=== PATIENT | male | born 1975 | race Caucasian/White ===

== ENCOUNTER 2018-05-10 20:36 | Inpatient (IN) | payer OTHER ==
[~2018-05-10 20:36] MED LIST: Glycopyrrolate 0.2 MG/ML 5 ML SYRINGE ONE; ISOVUE-370 76%-LOCM 1 ML ONE; PHENYLEPHRINE-NS 100 MCG/ML 10 ML SYRINGE ONE
[2018-05-10] MEDS ORDERED: Adacel (T-DAP) 0.5 ML VIAL ONE (20:38)
[2018-05-10] MEDS ORDERED: CEFAZOLIN/Water 2 GM/20 ML SYRINGE ONE (20:38)
[2018-05-10] MEDS ORDERED: Atropine Sulfate 1 mg/10 ml Syringe ONE (20:44)
[2018-05-10 20:55] LABS: #Basophils 0.1 thou/uL (0.0-0.2); #Eosinphils 0.4 thou/uL (0.0-0.7); #Lymphocytes 4.2 thou/uL (1.20-3.40); #Neutrophils 13.6 thou/uL (1.40-6.50); %Basophils 0.3 % (0.0-1.0); %Eosinophils 2.3 % (0.0-10.0); %Lymphocytes 21.9 % (21.0-51.0); %Monocytes 5.1 % (0.0-10.0); %Neutrophils 70.4 % (42.0-75.0); Hemoglobin 15.1 g/dL (14.0-18.0); Mean Corpuscular HGB CONC 36.1 g/dL (32.0-36.0); Mean Corpuscular Hemoglobin 31.4 pg (27.0-31.0); Mean Corpuscular Volume 86.9 fl (80.0-94.0); Mean Platelet Volume 6.2 fL (7.4-10.4); Platelet Count 349 thou/uL (130-400); RBC Distribution Width 12.3 % (11.5-14.5); White Blood Cell (WBC) Count 19.3 thou/uL (4.8-10.8)
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
[2018-05-10 21:03] LABS: INR-International Normal Ratio 1.1; PTT 26.9 SEC (22.9-36.1); Prothrombin Time 14.8 SEC (12.0-14.7)
[2018-05-10 21:08] LABS: ALT (SGPT) 23 U/L (8-55); AST (SGOT) 34 U/L (5-34); Albumin 4.1 g/dL (3.5-5.0); Alkaline Phosphatase 73 U/L (40-150); Anion Gap 15 mmol/L (10-20); BUN (Urea Nitrogen) 14 mg/dL (8.9-20.6); Bilirubin, Total 0.6 mg/dL (0.2-1.2); Calc. Creatinine Clearance 0 mL/min (70-130); Calcium 8.7 mg/dL (7.8-10.44); Carbon Dioxide 23 mmol/L (22-29); Chloride 104 mmol/L (98-107); Estimated GFR-MDRD 65; Globulin 2.7 g/dL (2.4-3.5); Glucose 190 mg/dL (70-105); Potassium 3.3 mmol/L (3.5-5.1); Protein, Total 6.8 g/dL (6.0-8.3); Sodium 139 mmol/L (136-145)
[2018-05-10] MEDS ORDERED: Dextrose 5% in Water 1,000 ML IV PRN (21:10)
[2018-05-10] MEDS ORDERED: hydrALAZINE 20 MG/ML VIAL SLOW IVP PRN (21:10)
[2018-05-10] MEDS ORDERED: Dextrose 50% Abboject 50 ML SYRINGE SLOW IVP PRN (21:10)
[2018-05-10] MEDS ORDERED: manNITOL 20% 500 ML ONE (21:14)
[2018-05-10] MEDS ORDERED: Bupivacaine/Epinephrine 0.25% 30 ML VIAL ONE (21:18)
[2018-05-10] MEDS ORDERED: Thrombin 5000 UNITS/5 ML VIAL ONE ×2 (21:18→22:37)
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
[2018-05-10] MEDS ORDERED: Bupivacaine HCl 0.5%/Epinephrine 1:200,000/PF 30 ml Vial ONE (21:29)
[2018-05-10] MEDS ORDERED: Sodium Chloride 0.9% 20 ML ONE (21:29)
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
[2018-05-10] MEDS ORDERED: Lidocaine 0.5%/Epinephrine 1:200,000 50 ml Vial ONE (21:44)
[2018-05-10] MEDS ORDERED: Lidocaine 1% w/Epinephrine 1:100K 30 ML VIAL ONE (21:44)
[2018-05-10] MEDS ORDERED: Lidocaine 2% w/Epinephrine 1:200K 20 ML VIAL ONE (21:44)
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
[2018-05-10 22:21] LABS: Actual Bicarbonate (HCO3a) 25.8 mEq/L (22-28); Base Excess (BEa) 0.3 mEq/L (-2.0 to +3.0); CO2 Tension 45.3 mmHg (35.0-45.0); Calcium, Ionized 1.1 mmol/L (1.12-1.30); Hematocrit-ABG 39.1 % (42.0-52.0); Hemoglobin (Hb) 13.2 g/dL (14.0-18.0); O2 Tension (PaO2) 93.9 mmHg (80.0-100.0); pH, Arterial 7.37 (7.35-7.45)
[2018-05-10 22:22] LABS: ALV-art Gradient 205.975 (0-20); Analyzer IN Cardio ER; Puncture Site LRA
[2018-05-10] MEDS ORDERED: Fentanyl CADD 250 ML IVPB SCH (22:30)
[2018-05-10] MEDS ORDERED: fentaNYL Citrate/PF 2,000 MCG in Sodium Chloride 0.9% 60 ML IV SCH (22:30)
[2018-05-10] MEDS ORDERED: PHENYLEPHRINE-NS 100 MCG/ML 10 ML SYRINGE ONE ×2 (22:46→23:03)
[2018-05-10] MEDS ORDERED: Norepinephrine 4 MG/4 ML VIAL ONE (22:52)
[2018-05-10] MEDS ORDERED: Phenylephrine HCL 10 MG/ML VIAL ONE (22:54)
[2018-05-10] MEDS ORDERED: levETIRAcetam 1000 MG/100 ML PREMIX BAG ONE (22:54)
[2018-05-11] MEDS ORDERED: Hydrocortisone Sod Succ/PF 100 mg/2 ml Vial IVP SCH (00:30)
[2018-05-11] MEDS: Sodium Chloride 0.9% 1,000 ML IV SCH ×3 (00:57→14:43)
[2018-05-11 00:58] LABS: Actual Bicarbonate (HCO3a) 18.6 mEq/L (22-28); Base Excess (BEa) -6.1 mEq/L (-2.0 to +3.0); CO2 Tension 33.8 mmHg (35.0-45.0); Hematocrit-ABG 31.5 % (42.0-52.0); Hemoglobin (Hb) 11.1 g/dL (14.0-18.0); O2 Tension (PaO2) 228.3 mmHg (80.0-100.0); pH, Arterial 7.36 (7.35-7.45)
[2018-05-11 00:59] LABS: Puncture Site LINE
[2018-05-11] MEDS ORDERED: Calcium Chloride 1 GM/10 ML Abboject SYRINGE ONE ×2 (01:14→01:16)
[2018-05-11] MEDS ORDERED: Calcium Chloride 1 GM/10 ML Abboject SYRINGE IVP SCH ×2 (01:15→01:30)
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
[2018-05-11] MEDS: CEFAZOLIN/Water 2 GM/20 ML SYRINGE SLOW IVP SCH ×3 (03:30→19:53)
--- NOTE | 2018-05-11 04:34 | OP ---
DIAGNOSIS: Left foot laceration 12-cm plantar medial, flap extending to the calcaneus palpated but n o fracture radiologically or by exam. PROCEDURE: Washout of left foot deep laceration involving the skin, subcutaneous tissue, plantar mus osmani, skin closure, and placement of posterior splint for tib-fib fracture more proximal. SURGEON: Cezar Cano M.D. PROCEDURE IN DETAIL: The patient at bedside in the emergency room, left foot laceration was cleansed with Betadine irrigated with saline and carefully palpated. No foreign bodies were appreciated. Sk in approximated with geri. Sterile dressing applied. Dr. Birmingham placed a posterior splint.
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
[2018-05-11] MEDS: HumaLOG 300 UNITS/3 ML VIAL SC PRN ×2 (04:50→12:54)
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
[2018-05-11 05:14] LABS: #Lymphocytes 0.6 thou/uL (1.20-3.40); #Monocytes 0.6 thou/uL (0.11-0.59); #Neutrophils 8.2 thou/uL (1.40-6.50); %Eosinophils 0.2 % (0.0-10.0); %Lymphocytes 6.4 % (21.0-51.0); %Monocytes 6.3 % (0.0-10.0); %Neutrophils 87.1 % (42.0-75.0); Hemoglobin 10.1 g/dL (14.0-18.0); Mean Corpuscular HGB CONC 35.6 g/dL (32.0-36.0); Mean Corpuscular Hemoglobin 31.2 pg (27.0-31.0); Mean Corpuscular Volume 87.7 fl (80.0-94.0); Mean Platelet Volume 6.5 fL (7.4-10.4); Platelet Count 222 thou/uL (130-400); RBC Distribution Width 12.3 % (11.5-14.5); Red Blood Cell (RBC) Count 3.24 mill/uL (4.70-6.10); White Blood Cell (WBC) Count 9.4 thou/uL (4.8-10.8)
[2018-05-11 05:19] LABS: Anion Gap 18 mmol/L (10-20); BUN (Urea Nitrogen) 11 mg/dL (8.9-20.6); Calc. Creatinine Clearance 107 mL/min (70-130); Calcium 9.1 mg/dL (7.8-10.44); Carbon Dioxide 16 mmol/L (22-29); Chloride 112 mmol/L (98-107); Estimated GFR-MDRD 62; Glucose 244 mg/dL (70-105); Magnesium 2.2 mg/dL (1.6-2.6); Phosphorus 2.8 mg/dL (2.3-4.7); Potassium 4.6 mmol/L (3.5-5.1); Sodium 141 mmol/L (136-145)
[2018-05-11] MEDS ORDERED: CEFAZOLIN 2 GM in Sodium Chloride 0.9% 100 ML IVPB SCH (06:00)
[2018-05-11 07:11] LABS: Actual Bicarbonate (HCO3a) 17.3 mEq/L (22-28); Base Excess (BEa) -7.2 mEq/L (-2.0 to +3.0); CO2 Tension 31.4 mmHg (35.0-45.0); Calcium, Ionized 1.2 mmol/L (1.12-1.30); Hematocrit-ABG 28.1 % (42.0-52.0); Hemoglobin (Hb) 9.8 g/dL (14.0-18.0); O2 Tension (PaO2) 145.5 mmHg (80.0-100.0); pH, Arterial 7.36 (7.35-7.45)
[2018-05-11 07:12] LABS: Puncture Site ALINE
--- NOTE | 2018-05-11 08:41 | RAD ---
CHEST 1 VIEW: HISTORY: Central line placement. COMPARISON: Chest radiograph from prior day. FINDINGS: Right IJ central venous catheter is in place with the tip poorly seen, although likely sits at the ca voatrial junction. The patient is intubated with endotracheal tube tip just below the level of the c lavicles. Enteric tube tip is at the gastric fundus. IMPRESSION: Uncomplicated placement of right internal jugular central venous catheter with tip poorly seen, altho ugh likely at the cavoatrial junction. POS: [facility]
--- NOTE | 2018-05-11 08:51 | RAD ---
PORTABLE CHEST: History: Respiratory distress. Comparison: Earlier exam, same day. FINDINGS: Endotracheal tube is in satisfactory position. NG tube and right central line are unchanged in positi on. Bibasilar lung changes are stable. IMPRESSION: Stable exam. POS: [facility]
[2018-05-11] MEDS ORDERED: Mannitol 12.5 GM/50 ML IV SCH (10:15)
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
--- NOTE | 2018-05-11 12:10 | CT ---
CT BRAIN WITHOUT CONTRAST: HISTORY: Traumatic brain injury. Hemicraniectomy. COMPARISON: CT brain 05/10/18. FINDINGS: There are right hemicraniectomy changes. There is herniation of the brain parenchyma through the def ect. There is right TELLER SUPERVISOR territory infarction, new. The ventricles are compressed. Large left subdu ral and epidural hematoma with left squamous portion of temporal bone fracture. The fracture extends to the left mastoids and crosses the internal auditory canal. There is also a fracture of the left lateral orbital wall. The fracture extends across the sphenoid sinuses into the right greater wing o f the sphenoid. There is extensive subdural hemorrhage along the anterior and posterior falx and right tentorium cere tylor. There is intraparenchymal hemorrhagic contusion of the left occipital and parietal lobes. Th ere is loss of normal sulcation throughout the brain indicating edema. There is hemorrhage within th e 4th ventricle. There is hemorrhage surrounding the brainstem. Intraparenchymal hemorrhage of the right parietal and temporal lobes is present with large right inf erior temporal hemorrhagic contusion. Inferior frontal hemorrhagic contusions are also present. There is midline shift approximately 8 mm. Severe brain swelling. Loss of normal basilar cisterns. IMPRESSION: 1. Right hemicraniectomy changes with extensive evolution of numerous hemorrhagic contusions, brain swelling, loss of basilar cisterns, and narrowing of the ventricular system. There are numerous new foci of intraparenchymal hemorrhagic contusion as well as 4th ventricular hemorrhage. Midline shift has slightly decreased, although there is extensive brain herniation of the craniectomy defect. 2. Extensive skull base fractures crossing the central skull base from the left squamous temporal diaz ne and the petrous portion of temporal bone across the ethmoid air cells extending into the right sph enoid wing. POS: [facility]
--- NOTE | 2018-05-11 12:41 | PRG ---
DATE OF SERVICE: 05/11/2018 SUBJECTIVE: Mr. Cedeño is approximately 9 hours out from a right-sided hemicraniectomy and acute sub dural hematoma evacuation. Intraoperatively, he had significant edema and evidence of multifocal hem orrhage in his brain related to his head injury. This morning, his right pupil is 6 mm and nonreacti ve. His left pupil is 4 mm and nonreactive. This is an improvement, although minimal. He does exte nsor posture in bilateral upper extremities this morning which again is an improvement as well althou gh his GCS remains 4T. His hemodynamics are stable. At this point, we will continue to follow him c losely and we will plan to continue to watch him closely at this point. I have updated his family.
[2018-05-11] MEDS: Acetaminophen 1,000 MG in Premix Bag 1 BAG IVPB PRN ×2 (13:13→23:24)
[2018-05-11] MEDS: Labetalol HCl 100 MG/20 ML VIAL SLOW IVP PRN ×4 (17:23→21:37)
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
[2018-05-12] MEDS: CEFAZOLIN/Water 2 GM/20 ML SYRINGE SLOW IVP SCH ×3 (03:44→20:23)
[2018-05-12] MEDS: Sodium Chloride 0.9% 1,000 ML IV SCH ×4 (03:44→23:07)
[2018-05-12] MEDS: HumaLOG 300 UNITS/3 ML VIAL SC PRN ×2 (03:51→11:17)
[2018-05-12] MEDS: Labetalol HCl 100 MG/20 ML VIAL SLOW IVP PRN ×3 (04:22→20:33)
[2018-05-12 04:31] LABS: #Lymphocytes 1.1 thou/uL (1.20-3.40); #Monocytes 0.8 thou/uL (0.11-0.59); #Neutrophils 6.6 thou/uL (1.40-6.50); %Basophils 0.3 % (0.0-1.0); %Eosinophils 0.3 % (0.0-10.0); %Lymphocytes 13.2 % (21.0-51.0); %Monocytes 9.1 % (0.0-10.0); Hemoglobin 7.9 g/dL (14.0-18.0); Mean Corpuscular HGB CONC 35.3 g/dL (32.0-36.0); Mean Corpuscular Hemoglobin 31.1 pg (27.0-31.0); Mean Corpuscular Volume 88.1 fl (80.0-94.0); Mean Platelet Volume 6.7 fL (7.4-10.4); Platelet Count 197 thou/uL (130-400); RBC Distribution Width 12.3 % (11.5-14.5); Red Blood Cell (RBC) Count 2.55 mill/uL (4.70-6.10); White Blood Cell (WBC) Count 8.5 thou/uL (4.8-10.8)
[2018-05-12 04:44] LABS: Anion Gap 9 mmol/L (10-20); BUN (Urea Nitrogen) 11 mg/dL (8.9-20.6); Calc. Creatinine Clearance 138 mL/min (70-130); Carbon Dioxide 25 mmol/L (22-29); Chloride 111 mmol/L (98-107); Estimated GFR-MDRD 83; Glucose 157 mg/dL (70-105); Magnesium 2.1 mg/dL (1.6-2.6); Phosphorus 1.5 mg/dL (2.3-4.7); Potassium 3.6 mmol/L (3.5-5.1); Sodium 141 mmol/L (136-145)
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
[2018-05-12] MEDS ORDERED: Potassium Phosphate 30 MMOL in Sodium Chloride 0.9% 500 ML IVPB SCH (07:30)
[2018-05-12 07:55] LABS: Actual Bicarbonate (HCO3a) 24.4 mEq/L (22-28); Base Excess (BEa) -0.1 mEq/L (-2.0 to +3.0); CO2 Tension 38.4 mmHg (35.0-45.0); Hematocrit-ABG 21.7 % (42.0-52.0); Hemoglobin (Hb) 7.7 g/dL (14.0-18.0); O2 Tension (PaO2) 126.4 mmHg (80.0-100.0); pH, Arterial 7.42 (7.35-7.45)
[2018-05-12 07:56] LABS: Calcium, Ionized 1.3 mmol/L (1.12-1.30); Puncture Site RALINE
[2018-05-12] MEDS: Pantoprazole 40 MG VIAL IVP SCH (09:02)
[2018-05-12] MEDS: Acetaminophen 500 MG TAB PO SCH ×3 (10:56→22:56)
[2018-05-12] MEDS: cloNIDine 0.1 MG TAB PO SCH ×3 (10:57→22:56)
[2018-05-12] MEDS: Metoprolol Tartrate 5 MG/5 ML VIAL IVP PRN ×2 (11:51→17:57)
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
--- NOTE | 2018-05-12 12:50 | PRG ---
DATE OF SERVICE: 05/12/2018 Mr. Cedeño continues to have a moribund exam. While his pupils are symmetric, they are not reactive. They are both 3 mm. He essentially extensor postures weakly. Prognosis is poor.
[2018-05-12 20:49] LABS: INR-International Normal Ratio 1.4; Prothrombin Time 17.8 SEC (12.0-14.7)
[2018-05-12 20:50] LABS: PTT 40.1 SEC (22.9-36.1)
[2018-05-12] MEDS: hydrALAZINE 20 MG/ML VIAL SLOW IVP PRN (23:06)
[2018-05-13] MEDS: Metoprolol Tartrate 5 MG/5 ML VIAL IVP PRN (00:35)
[2018-05-13] MEDS: Acetaminophen 500 MG TAB PO SCH ×4 (04:29→23:44)
[2018-05-13] MEDS: CEFAZOLIN/Water 2 GM/20 ML SYRINGE SLOW IVP SCH ×3 (04:29→19:53)
[2018-05-13] MEDS: cloNIDine 0.1 MG TAB PO SCH ×4 (04:31→23:44)
[2018-05-13 05:39] LABS: #Eosinphils 0.1 thou/uL (0.0-0.7); #Lymphocytes 1.1 thou/uL (1.20-3.40); #Monocytes 0.6 thou/uL (0.11-0.59); %Basophils 0.4 % (0.0-1.0); %Lymphocytes 12.9 % (21.0-51.0); %Monocytes 6.7 % (0.0-10.0); %Neutrophils 78.9 % (42.0-75.0); Hemoglobin 6.3 g/dL (14.0-18.0); Mean Corpuscular HGB CONC 35.6 g/dL (32.0-36.0); Mean Corpuscular Hemoglobin 31.5 pg (27.0-31.0); Mean Corpuscular Volume 88.5 fl (80.0-94.0); Mean Platelet Volume 6.6 fL (7.4-10.4); Platelet Count 173 thou/uL (130-400); RBC Distribution Width 12.2 % (11.5-14.5); Red Blood Cell (RBC) Count 1.99 mill/uL (4.70-6.10); White Blood Cell (WBC) Count 8.8 thou/uL (4.8-10.8)
[2018-05-13 05:58] LABS: Anion Gap 9 mmol/L (10-20); BUN (Urea Nitrogen) 14 mg/dL (8.9-20.6); Calc. Creatinine Clearance 189 mL/min (70-130); Calcium 8.5 mg/dL (7.8-10.44); Carbon Dioxide 26 mmol/L (22-29); Chloride 110 mmol/L (98-107); Estimated GFR-MDRD Greater than 90; Glucose 143 mg/dL (70-105); Phosphorus 2.6 mg/dL (2.3-4.7); Potassium 3.7 mmol/L (3.5-5.1); Sodium 141 mmol/L (136-145)
[2018-05-13] MEDS: Sodium Chloride 0.9% 1,000 ML IV SCH ×3 (06:20→23:42)
[2018-05-13] MEDS: Pantoprazole 40 MG VIAL IVP SCH (09:17)
[2018-05-13] MEDS ORDERED: Potassium Phosphate 15 MMOL in Sodium Chloride 0.9% 250 ML 250 ML IVPB SCH (11:00)
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
[2018-05-13] MEDS: Labetalol HCl 100 MG/20 ML VIAL SLOW IVP PRN (15:15)
[2018-05-13] MEDS: hydrALAZINE 20 MG/ML VIAL SLOW IVP PRN (15:15)
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
[2018-05-14] MEDS: cloNIDine 0.1 MG TAB PO SCH ×4 (00:02→18:04)
[2018-05-14] MEDS: Acetaminophen 500 MG TAB PO SCH ×4 (00:03→18:04)
[2018-05-14] MEDS: CEFAZOLIN/Water 2 GM/20 ML SYRINGE SLOW IVP SCH ×3 (04:24→20:24)
[2018-05-14] MEDS ORDERED: Acetaminophen 500 MG TAB PO SCH (06:00)
[2018-05-14] MEDS: Sodium Chloride 0.9% 1,000 ML IV SCH ×2 (06:29→16:56)
[2018-05-14] MEDS: Pantoprazole 40 MG VIAL IVP SCH (09:35)
[2018-05-14] MEDS: Labetalol HCl 100 MG/20 ML VIAL SLOW IVP PRN (10:00)
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
[2018-05-14] MEDS: hydrALAZINE 20 MG/ML VIAL SLOW IVP PRN (13:23)
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
[2018-05-14] MEDS: Metoprolol Tartrate 5 MG/5 ML VIAL IVP PRN (19:48)
[2018-05-15] MEDS: Acetaminophen 500 MG TAB PO SCH ×4 (00:06→16:56)
[2018-05-15] MEDS: cloNIDine 0.1 MG TAB PO SCH ×4 (00:07→16:56)
[2018-05-15] MEDS: CEFAZOLIN/Water 2 GM/20 ML SYRINGE SLOW IVP SCH ×3 (04:00→20:59)
[2018-05-15] MEDS: Sodium Chloride 0.9% 1,000 ML IV SCH ×4 (05:13→21:01)
[2018-05-15] MEDS: Pantoprazole 40 MG VIAL IVP SCH (08:19)
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
[2018-05-15 09:32] LABS: Hemoglobin 6.8 g/dL (14.0-18.0); Mean Corpuscular HGB CONC 34.7 g/dL (32.0-36.0); Mean Corpuscular Hemoglobin 31.4 pg (27.0-31.0); Mean Corpuscular Volume 90.7 fl (80.0-94.0); Mean Platelet Volume 6.2 fL (7.4-10.4); Platelet Count 215 thou/uL (130-400); Red Blood Cell (RBC) Count 2.17 mill/uL (4.70-6.10); White Blood Cell (WBC) Count 8.8 thou/uL (4.8-10.8)
[2018-05-15 09:48] LABS: Anion Gap 11 mmol/L (10-20); BUN (Urea Nitrogen) 20 mg/dL (8.9-20.6); Calc. Creatinine Clearance 195 mL/min (70-130); Calcium 8.7 mg/dL (7.8-10.44); Carbon Dioxide 25 mmol/L (22-29); Chloride 109 mmol/L (98-107); Estimated GFR-MDRD Greater than 90; Glucose 138 mg/dL (70-105); Magnesium 2.4 mg/dL (1.6-2.6); Phosphorus 3.3 mg/dL (2.3-4.7); Potassium 3.9 mmol/L (3.5-5.1); Sodium 141 mmol/L (136-145)
[2018-05-15 09:55] LABS: Band 8 % (5-11); Lymphocytes 12 % (21-51); MDiff Complete? YES; Metamyelocyte 3 % (0-0); Neutrophil 77 % (42-75)
--- NOTE | 2018-05-15 12:09 | PRG ---
DATE OF SERVICE: 05/15/2018 Mr. Cedeño remains with a moribund exam. I have comforted family at the bedside. I think there is n o chance of a meaningful recovery.
[2018-05-15] MEDS: hydrALAZINE 20 MG/ML VIAL SLOW IVP PRN (12:11)
[2018-05-15] MEDS: Enoxaparin Sodium 40 MG/0.4 ML SYRINGE SC SCH (12:25)
[2018-05-16] MEDS: cloNIDine 0.1 MG TAB PO SCH ×5 (00:20→23:51)
[2018-05-16] MEDS: Acetaminophen 500 MG TAB PO SCH ×5 (00:20→23:51)
[2018-05-16] MEDS: CEFAZOLIN/Water 2 GM/20 ML SYRINGE SLOW IVP SCH ×3 (05:04→18:49)
[2018-05-16] MEDS: Sodium Chloride 0.9% 1,000 ML IV SCH ×3 (05:05→23:50)
[2018-05-16] MEDS: Pantoprazole 40 MG VIAL IVP SCH (09:09)
[2018-05-16] MEDS: Enoxaparin Sodium 40 MG/0.4 ML SYRINGE SC SCH (09:09)
[2018-05-16] MEDS: hydrALAZINE 20 MG/ML VIAL SLOW IVP PRN (09:11)
[2018-05-16] MEDS: Labetalol HCl 100 MG/20 ML VIAL SLOW IVP PRN (11:10)
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
[2018-05-17] MEDS: CEFAZOLIN/Water 2 GM/20 ML SYRINGE SLOW IVP SCH ×3 (04:21→20:31)
[2018-05-17] MEDS: Sodium Chloride 0.9% 1,000 ML IV SCH ×2 (05:47→13:38)
[2018-05-17] MEDS: Acetaminophen 500 MG TAB PO SCH ×3 (05:47→17:18)
[2018-05-17] MEDS: cloNIDine 0.1 MG TAB PO SCH ×3 (05:47→17:18)
[2018-05-17] MEDS: Enoxaparin Sodium 40 MG/0.4 ML SYRINGE SC SCH (08:46)
[2018-05-17] MEDS: Pantoprazole 40 MG VIAL IVP SCH (08:47)
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
[2018-05-17] MEDS: Metoprolol Tartrate 5 MG/5 ML VIAL IVP PRN ×3 (13:47→17:19)
[2018-05-18] MEDS: Acetaminophen 500 MG TAB PO SCH ×2 (00:20→06:21)
[2018-05-18] MEDS: cloNIDine 0.1 MG TAB PO SCH ×2 (00:20→06:21)
[2018-05-18] MEDS: Sodium Chloride 0.9% 1,000 ML IV SCH ×2 (03:42→07:17)
[2018-05-18] MEDS: CEFAZOLIN/Water 2 GM/20 ML SYRINGE SLOW IVP SCH (03:43)
[2018-05-18 06:22] VITALS: BP 122/67
[2018-05-18 07:37] VITALS: BMI 30.4
[2018-05-18] MEDS ORDERED: Morphine 10 MG/ML VIAL SLOW IVP PRN (09:11)
[2018-05-18] MEDS ORDERED: Scopolamine 1.5 mg/72 hour Patch TD SCH (09:15)
[2018-05-18] MEDS ORDERED: Oxymetazoline HCl 0.05% ( 15 ML ) NASAL PRN (10:37)
[2018-05-18] MEDS ORDERED: Furosemide 40 MG/4 ML VIAL ONE ×2 (10:40→10:41)
[2018-05-18] MEDS: Morphine 10 MG/ML VIAL SLOW IVP PRN ×2 (12:00→13:49)
[2018-05-18] MEDS: Enoxaparin Sodium 40 MG/0.4 ML SYRINGE SC SCH (12:11)
[2018-05-18] MEDS: Pantoprazole 40 MG VIAL IVP SCH (12:33)
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
[2018-05-18 17:34] VITALS: TEMP 97
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
== END 2018-05-18 15:32 | disposition expired | DRG 955 ==
LOC: ERS 20:36 → CCU 21:06
PROVIDERS: ADMIT Specialist; ATTEND Specialist
PROC: 00C40ZZ Extirpation of Matter from Intracranial Subdural Space, Open Approach (ICD-10-PCS; principal; 2018-05-10)
PROC: 5A1955Z Respiratory Ventilation, Greater than 96 Consecutive Hours (ICD-10-PCS; 2018-05-10)
PROC: 02HV33Z Insertion of Infusion Device into Superior Vena Cava, Percutaneous Approach (ICD-10-PCS; 2018-05-11)
PROC: 0HQNXZZ Repair Left Foot Skin, External Approach (ICD-10-PCS; 2018-05-11)
PROC: 2W3RX1Z Immobilization of Left Lower Leg using Splint (ICD-10-PCS; 2018-05-11)
PROC: 3E10X8Z Irrigation of Skin and Mucous Membranes using Irrigating Substance (ICD-10-PCS; 2018-05-11)
DX: S27.322A Contusion of lung, bilateral, initial encounter; G93.5 Compression of brain; J96.00 Acute respiratory failure, unspecified whether with hypoxia or hypercapnia; S82.202A Unspecified fracture of shaft of left tibia, initial encounter for closed fracture; D62 Acute posthemorrhagic anemia; S02.91XA Unspecified fracture of skull, initial encounter for closed fracture; S02.40FA Zygomatic fracture, left side, initial encounter for closed fracture; S02.82XA Fracture of other specified skull and facial bones, left side, initial encounter for closed fracture; Z51.5 Encounter for palliative care; S82.402A Unspecified fracture of shaft of left fibula, initial encounter for closed fracture; E83.39 Other disorders of phosphorus metabolism; S91.312A Laceration without foreign body, left foot, initial encounter; R40.2312 Coma scale, best motor response, none, at arrival to emergency department; R40.2112 Coma scale, eyes open, never, at arrival to emergency department; R40.2212 Coma scale, best verbal response, none, at arrival to emergency department; V23.4XXA Motorcycle driver injured in collision with car, pick-up truck or van in traffic accident, initial encounter
CPT/HCPCS: 36415; 36416; 36430; 51702; 70450; 70486; 71045; 71260; 72125; 74177; 80048; 80053; 82150; 82533; 82805; 83735; 83930; 84100; 85007; 85025; 85027; 85384; 85610; 85730; 86850; 86900; 86901; 90471; 90715; 94002; 94003; 96365; 96375; 99292; A4216; C9113; G0390; J0131; J0360; J0461; J0670; J1650; J1720; J1940; J1953; J2001; J2150; J2270; J2370; J3010; J3490; J7050; J7799; P9016; P9045